=== PATIENT | female | born 1940 | race Caucasian/White ===

== ENCOUNTER 2016-09-10 15:45 | Outpatient (CLI) | payer MEDICARE | END 2016-09-10 15:46 | disposition home or self-care (01) | LOC: BURLAB 15:45 | PROVIDERS: ATTEND Family Medicine | DX: Z01.812 Encounter for preprocedural laboratory examination (principal) | CPT/HCPCS: 36415; 82565 ==

== ENCOUNTER 2016-09-11 09:05 | Outpatient (CLI) | payer MEDICARE ==
--- NOTE | 2016-09-11 15:49 | CT ---
CT ABDOMEN AND PELVIS WITH AND WITHOUT CONTRAST: DATE: 09/11/16. FINDINGS: Spiral CT of the abdomen and pelvis was performed for evaluation of left abdominal and pelvic pain. There is a prior history of left ovarian cancer. Comparison is made with the prior scan of 05/31/12 done at [facility]. Other than a small amount of dependent atelectasis, the lungs are clear. The liver, spleen, and mcclure creas were unremarkable on the noncontrast scan. On the postcontrast study, there was an equivocal hyperdensity in the dome of the right lobe of the liver that is not clearly visible on the prior falguni dy. I cannot tell if it is a small hypervascular lesion or merely some venous filling of pa portal branch. It measures 1.2 cm in size. There may be a similar area adjacent to it. Otherwise, the li cindy is unremarkable in appearance. The kidneys and other organs were unremarkable. There are no ad renal masses. The aorta shows no aneurysm. The bowel is nondistended. There is no mesenteric adenopathy or inflammatory change around bowel. Sigmoid diverticulosis is present, but there are no clear findings of diverticulitis. A small amoun t of streaking deep in the pelvis on the left side is probably related to scarring from her prior ov tasha surgery. It was present o the prior CT and has not changed. CT of the pelvis shows no pelvic masses, fluid collections, or other inflammatory changes. There ar e no findings suggestive of recurrent disease here. Degenerative changes are present in the spine. IMPRESSION: 1. Diverticulosis without findings of diverticulitis. 2. No changes to explain left lower quadrant or left-sided abdominal pain. 3. A 1.2 cm vague hypervascular area near the dome of the liver in the right lobe. Volume averagin g through a portal venous branch versus a small hypervascular lesion. If one wished, one could cons ider an MRI through the area to either rule in or rule out any pathology here. The findings is fair ly minimal, though I do not find a correlative finding on the 2012 scan. CODE T POS: HOME
== END 2016-09-11 09:06 | disposition home or self-care (01) ==
LOC: BURCT 09:05
PROVIDERS: ATTEND Family Medicine
DX: R10.32 Left lower quadrant pain (principal); K57.90 Diverticulosis of intestine, part unspecified, without perforation or abscess without bleeding
CPT/HCPCS: 74178

== ENCOUNTER 2017-01-31 11:23 | Emergency (ER) | payer MEDICARE ==
[2017-01-31 11:58] LABS: Eosinophils 2 % (0-10); Hemoglobin 15.9 g/dL (12.0-16.0); Lymphocytes 27 % (21-51); MDiff Complete? YES; Mean Corpuscular HGB CONC 32.6 g/dL (32.0-36.0); Mean Corpuscular Volume 91.8 fl (81.0-99.0); Mean Platelet Volume 7.8 fL (7.4-10.4); Monocytes 10 % (0-10); Neutrophil 61 % (42-75); Platelet Count 226 thou/uL (130-400); RBC Distribution Width 12.8 % (11.5-14.5); Red Blood Cell (RBC) Count 5.31 mill/uL (4.20-5.40); White Blood Cell (WBC) Count 8.2 thou/uL (4.8-10.8)
[2017-01-31 12:00] LABS: INR-International Normal Ratio 0.9; PTT 23.5 SEC (22.9-36.1); Prothrombin Time 12.2 SEC (12.0-14.7)
[2017-01-31 12:13] LABS: CKMB 1.3 ng/mL (0-6.6); Troponin I Less than 0.010 ng/mL (< 0.028)
--- NOTE | 2017-01-31 12:13 | CT ---
CT BRAIN: DATE: 01/31/17. PROVIDED CLINICAL HISTORY: Stroke alert, altered mental status, confusion and difficulty speaking. FINDINGS: Comparison is made with the study dated 07/09/15. The ventricular system appears normal in size and morphology. There is no evidence for intracranial hemorrhage or luís effect. Minimal microvascular ischemic change involving the left frontal white matter is redemonstrated, stable. The extracranial soft tissues and osseous structures demonstrate an unremarkable CT appearance. IMPRESSION: No evidence for intracranial hemorrhage or mass effect. Findings were communicated to Dr. Eid via telephone 11:41 a.m. 01/31/17. CODE CR POS: LYNDA
[2017-01-31 12:14] LABS: ALT (SGPT) 28 U/L (8-55); AST (SGOT) 25 U/L (5-34); Albumin 4.2 g/dL (3.4-4.8); Alkaline Phosphatase 35 U/L (40-150); Anion Gap 17 mmol/L (10-20); BUN (Urea Nitrogen) 18 mg/dL (9.8-20.1); Bilirubin, Total 0.7 mg/dL (0.2-1.2); Calc. Creatinine Clearance 0 mL/min (70-130); Calcium 9.5 mg/dL (7.8-10.44); Carbon Dioxide 25 mmol/L (23-31); Chloride 104 mmol/L (98-107); Estimated GFR-MDRD 50; Globulin 3.1 g/dL (2.4-3.5); Glucose 96 mg/dL (83-110); Protein, Total 7.3 g/dL (6.0-8.3); Sodium 142 mmol/L (136-145)
== END 2017-01-31 12:14 | disposition short-term general hospital (02) ==
LOC: BURERS 11:23
DX: R41.82 Altered mental status, unspecified (principal); I10 Essential (primary) hypertension
CPT/HCPCS: 36415; 70450; 80053; 82553; 84443; 84484; 85025; 85610; 85730; 93005; 94760

== ENCOUNTER 2018-03-13 10:12 | Emergency (ER) | payer MEDICARE ==
--- NOTE | 2018-03-13 11:06 | RAD ---
RIGHT SHOULDER 3 VIEWS: HISTORY: Trauma. Pain. COMPARISON: None. FINDINGS: There is evidence of previous rotator cuff repair. There is no fracture or dislocation. Visualized right ribs do not have any traumatic change. IMPRESSION: No fracture or dislocation. POS: LYNDA
== END 2018-03-13 11:09 | disposition home or self-care (01) ==
LOC: BURERS 10:12
DX: S40.011A Contusion of right shoulder, initial encounter (principal); I10 Essential (primary) hypertension; W01.0XXA Fall on same level from slipping, tripping and stumbling without subsequent striking against object, initial encounter

== ENCOUNTER → 2019-12-05 | Emergency (ER) | payer MEDICARE ==
[~2019-12-05] MED LIST: Acetaminophen 500 MG TAB ONE; Adacel (T-DAP) 0.5 ML SYRINGE ONE; Bacitracin 1 PK ONE; Lidocaine 1% w/Epinephrine 1:100K 30 ML VIAL ONE
--- NOTE | 2019-12-05 09:47 | CT ---
CT OF THE CERVICAL SPINE: DATE: 12/05/2019. FINDINGS: Spiral CT of the cervical spine was performed for evaluation after a fall. No fracture, dislocation, or acute bony change was seen. There is straightening of the cervical spin e which could be the patient's norm or due to spasm. The C1 to dens distance is normal and the soft tissues are normal in thickness. Findings by level follow: C1-C2: No acute findings. C2-C3: Mild to moderate left foraminal stenosis due to osteophytes. Prominent arthritic changes in the facets on the left. C3-C4: Severe bilateral facet arthritis, worst on the right. Severe right foraminal narrowing and m oderate left foraminal narrowing. A bony structure presumed to be osteophyte protrudes into the spin al canal from the left posterolateral margin and slightly indents the thecal sac. C4-C5: Severe facet arthritis especially on the right. Severe right foraminal stenosis and moderate to severe left foraminal stenosis. Mildly bulging disk-osteophyte complex with an AP diameter of th e canal at this level of about 8 mm. C5-C6: Severe facet arthritis, right greater than left. Severe right foraminal stenosis and moderat e left foraminal stenosis. Centrally bulging disk-osteophyte complex. At the C6 level, the maximal AP diameter of the canal is about 8 mm. C7-T1: Mild right foraminal narrowing. T1-T2: Mild left foraminal narrowing. T2-T3: No acute findings. IMPRESSION: Severe degenerative changes as noted, but no acute fracture was seen. Findings called to the ER at 0835 on 12/05/2019. CODE CR POS: HOME
--- NOTE | 2019-12-05 10:03 | CT ---
CT OF THE BRAIN WITHOUT CONTRAST: DATE: 12/05/2019. COMPARISON: Comparison is made with a 01/31/2017 study. FINDINGS: The ventricles are normal in size for age and atrophy. No intracranial bleeding or extraaxial hemato ma was seen. There is no sign of stroke, mass, or edema. The skull appears intact; however, there is a fracture at the base of the right nasal bone. There is slight septal deviation towards the right. The visible paranasal sinuses are clear, however. IMPRESSION: 1. No acute intracranial findings. 2. Fracture of the right nasal bone. Report called to ER at 0835 on 12/05/2019. CODE CR POS: HOME
== END ==
LOC: BURERS 07:52
DX: S01.81XA Laceration without foreign body of other part of head, initial encounter (principal); I10 Essential (primary) hypertension; Z79.899 Other long term (current) drug therapy
CPT/HCPCS: 12052; 70450; 72125; 90471; 90715; J2001

== ENCOUNTER 2019-12-09 07:55 | Emergency (ER) | payer MEDICARE | END 2019-12-09 08:20 | disposition home or self-care (01) | LOC: BURERS 07:55 | DX: S01.81XD Laceration without foreign body of other part of head, subsequent encounter (principal); I10 Essential (primary) hypertension; Z79.899 Other long term (current) drug therapy ==

== ENCOUNTER 2021-12-03 14:13 | Emergency (ER) | payer MEDICARE ==
[2021-12-03 14:58] LABS: Bilirubin Negative (Negative); Blood, Urine Negative (Negative); Glucose, Urine (Dipstick) Negative (Negative); Ketone, Urine Negative (Negative); Leukocyte Negative (Negative); Nitrite Negative (Negative); Protein, Urine (Dipstick) Negative (Neg-Trace)
[2021-12-03 14:59] LABS: Clarity Hazy (Clear)
[2021-12-03 15:48] LABS: #Basophils 0.2 thou/uL (0.0-0.2); #Eosinphils 0.2 thou/uL (0.0-0.7); #Monocytes 1.5 thou/uL (0.11-0.59); #Neutrophils 9.4 thou/uL (1.40-6.50); %Basophils 1.2 % (0.0-1.0); %Eosinophils 1.7 % (0.0-10.0); %Lymphocytes 14.9 % (21.0-51.0); %Monocytes 11.6 % (0.0-10.0); %Neutrophils 70.7 % (42.0-75.0); Hemoglobin 14.3 g/dL (12.0-16.0); Mean Corpuscular HGB CONC 33.8 g/dL (32.0-36.0); Mean Corpuscular Hemoglobin 30.7 pg (27.0-31.0); Mean Corpuscular Volume 90.9 fL (78.0-98.0); Mean Platelet Volume 7.7 fL (7.4-10.4); Platelet Count 209 thou/uL (130-400); Red Blood Cell (RBC) Count 4.65 mill/uL (4.20-5.40); White Blood Cell (WBC) Count 13.3 thou/uL (4.8-10.8)
[2021-12-03 16:06] LABS: ALT (SGPT) 23 U/L (8-55); AST (SGOT) 18 U/L (5-34); Albumin 3.9 g/dL (3.4-4.8); Alkaline Phosphatase 30 U/L (40-110); Anion Gap 16 mmol/L (10-20); BUN (Urea Nitrogen) 15 mg/dL (9.8-20.1); Bilirubin, Total 0.9 mg/dL (0.2-1.2); Calc. Creatinine Clearance 0 mL/min (70-130); Calcium 9.2 mg/dL (7.8-10.44); Carbon Dioxide 27 mmol/L (23-31); Chloride 101 mmol/L (98-107); Globulin 2.8 g/dL (2.4-3.5); Glucose 100 mg/dL (83-110); Lipase 10 U/L (8-78); Potassium 3.6 mmol/L (3.5-5.1); Protein, Total 6.7 g/dL (5.8-8.1); Sodium 140 mmol/L (136-145)
[2021-12-03] MEDS ORDERED: Amoxicillin/Potassium Clav 875 MG TAB ONE (17:22)
== END 2021-12-03 17:29 | disposition home or self-care (01) ==
LOC: BURERS 14:13
DX: K57.32 Diverticulitis of large intestine without perforation or abscess without bleeding (principal); I10 Essential (primary) hypertension; Z85.43 Personal history of malignant neoplasm of ovary
CPT/HCPCS: 36415; 74176; 80053; 81003; 83605; 83690; 85025; 87804; 93005

== ENCOUNTER 2023-01-08 10:15 | Inpatient (IN) | payer MEDICARE ==
[2023-01-08 19:55] VITALS: BMI 27.4
[2023-01-08] MEDS ORDERED: Ondansetron ODT 4 MG TAB PO PRN (21:19)
[2023-01-08] MEDS ORDERED: Polyethylene Glycol 3350 17 GM Packet PO PRN (21:19)
[2023-01-08] MEDS ORDERED: hydrALAZINE 25 MG TAB PO SCH (23:15)
[2023-01-08] MEDS ORDERED: Famotidine 20 MG TAB PO SCH (23:15)
[2023-01-08] MEDS ORDERED: levETIRAcetam 500 mg/5 ml Oral Solution PO SCH (23:15)
[2023-01-08] MEDS ORDERED: Atorvastatin Calcium 10 MG TAB PO SCH (23:15)
[2023-01-09] MEDS: levETIRAcetam 500 mg/5 ml Oral Solution PO SCH ×2 (10:01→22:20)
[2023-01-09] MEDS: Calcium Carbonate 600 MG + Vit D TAB PO SCH (10:05)
[2023-01-09] MEDS: hydrALAZINE 25 MG TAB PO SCH ×3 (10:06→22:20)
[2023-01-09] MEDS: Famotidine 20 MG TAB PO SCH ×2 (10:09→22:21)
[2023-01-09] MEDS: Lisinopril 20 MG TAB PO SCH (10:09)
[2023-01-09] MEDS: Magnesium Oxide 400 MG TAB PO SCH (10:09)
[2023-01-09] MEDS: Escitalopram Oxalate 10 mg Tablet PO SCH (10:09)
[2023-01-09] MEDS: Amlodipine 5 MG TAB PO SCH (10:10)
[2023-01-09] MEDS: Atorvastatin Calcium 10 MG TAB PO SCH (22:21)
[2023-01-10] MEDS: levETIRAcetam 500 mg/5 ml Oral Solution PO SCH ×2 (10:21→23:10)
[2023-01-10] MEDS: hydrALAZINE 25 MG TAB PO SCH ×3 (10:21→23:10)
[2023-01-10] MEDS: Famotidine 20 MG TAB PO SCH ×2 (10:23→23:11)
[2023-01-10] MEDS: Calcium Carbonate 600 MG + Vit D TAB PO SCH (10:23)
[2023-01-10] MEDS: Escitalopram Oxalate 10 mg Tablet PO SCH (10:24)
[2023-01-10] MEDS: Amlodipine 5 MG TAB PO SCH (10:24)
[2023-01-10] MEDS: Lisinopril 20 MG TAB PO SCH (10:24)
[2023-01-10] MEDS: Magnesium Oxide 400 MG TAB PO SCH (10:24)
[2023-01-10] MEDS: Atorvastatin Calcium 10 MG TAB PO SCH (23:11)
[2023-01-11] MEDS: levETIRAcetam 500 mg/5 ml Oral Solution PO SCH ×2 (09:11→22:34)
[2023-01-11] MEDS: Magnesium Oxide 400 MG TAB PO SCH (09:12)
[2023-01-11] MEDS: Escitalopram Oxalate 10 mg Tablet PO SCH (09:12)
[2023-01-11] MEDS: Lisinopril 20 MG TAB PO SCH (09:12)
[2023-01-11] MEDS: Famotidine 20 MG TAB PO SCH ×2 (09:12→22:35)
[2023-01-11] MEDS: Calcium Carbonate 600 MG + Vit D TAB PO SCH (09:12)
[2023-01-11] MEDS: Amlodipine 5 MG TAB PO SCH (09:13)
[2023-01-11] MEDS: hydrALAZINE 25 MG TAB PO SCH ×3 (09:16→22:35)
[2023-01-11] MEDS: Atorvastatin Calcium 10 MG TAB PO SCH (22:35)
[2023-01-12] MEDS: Lisinopril 20 MG TAB PO SCH (09:26)
[2023-01-12] MEDS: Amlodipine 5 MG TAB PO SCH (09:26)
[2023-01-12] MEDS: hydrALAZINE 25 MG TAB PO SCH ×3 (09:26→23:59)
[2023-01-12] MEDS: levETIRAcetam 500 mg/5 ml Oral Solution PO SCH ×2 (09:26→23:58)
[2023-01-12] MEDS: Escitalopram Oxalate 10 mg Tablet PO SCH (09:26)
[2023-01-12] MEDS: Calcium Carbonate 600 MG + Vit D TAB PO SCH (09:26)
[2023-01-12] MEDS: Famotidine 20 MG TAB PO SCH (09:27)
[2023-01-13] MEDS: Atorvastatin Calcium 10 MG TAB PO SCH ×2 (00:02→21:40)
[2023-01-13] MEDS: Famotidine 20 MG TAB PO SCH ×3 (00:03→21:40)
[2023-01-13] MEDS: Magnesium Oxide 400 MG TAB PO SCH ×2 (00:04→21:41)
[2023-01-13] MEDS: hydrALAZINE 25 MG TAB PO SCH ×3 (09:38→21:40)
[2023-01-13] MEDS: Calcium Carbonate 600 MG + Vit D TAB PO SCH (09:39)
[2023-01-13] MEDS: Escitalopram Oxalate 10 mg Tablet PO SCH (09:40)
[2023-01-13] MEDS: Amlodipine 5 MG TAB PO SCH (09:40)
[2023-01-13] MEDS: Lisinopril 20 MG TAB PO SCH (09:40)
[2023-01-13] MEDS: levETIRAcetam 500 mg/5 ml Oral Solution PO SCH ×2 (09:44→21:40)
[2023-01-13] MEDS ORDERED: Bisacodyl 10 MG SUPP PR PRN (17:27)
[2023-01-13] MEDS ORDERED: Bisacodyl 5 MG TAB PO PRN (17:27)
[2023-01-13] MEDS ORDERED: Acetaminophen 325 MG TAB PO PRN (17:30)
[2023-01-14] MEDS: levETIRAcetam 500 mg/5 ml Oral Solution PO SCH ×2 (09:43→22:34)
[2023-01-14] MEDS: hydrALAZINE 25 MG TAB PO SCH ×3 (09:56→22:36)
[2023-01-14] MEDS: Amlodipine 5 MG TAB PO SCH (09:57)
[2023-01-14] MEDS: Famotidine 20 MG TAB PO SCH ×2 (09:57→22:37)
[2023-01-14] MEDS: Lisinopril 20 MG TAB PO SCH (09:57)
[2023-01-14] MEDS: Calcium Carbonate 600 MG + Vit D TAB PO SCH (09:57)
[2023-01-14] MEDS: Escitalopram Oxalate 10 mg Tablet PO SCH (09:57)
[2023-01-14 12:44] LABS: #Basophils 0.3 thou/uL (0.0-0.2); #Eosinphils 0.2 thou/uL (0.0-0.7); #Lymphocytes 1.7 thou/uL (1.20-3.40); %Basophils 2.6 % (0.0-1.0); %Eosinophils 1.8 % (0.0-10.0); %Monocytes 9.1 % (0.0-10.0); %Neutrophils 71.6 % (42.0-75.0); Hemoglobin 11.8 g/dL (12.0-16.0); Mean Corpuscular HGB CONC 32.5 g/dL (32.0-36.0); Mean Corpuscular Hemoglobin 29.6 pg (27.0-31.0); Mean Corpuscular Volume 91.1 fl (78.0-98.0); Mean Platelet Volume 7.5 fL (7.4-10.4); Platelet Count 336 10x3/uL (130-400); RBC Distribution Width 13.2 % (11.5-14.5); White Blood Cell (WBC) Count 11.1 10x3/uL (4.8-10.8)
[2023-01-14 12:48] LABS: ALT (SGPT) 32 U/L (8-55); AST (SGOT) 21 U/L (5-34); Albumin 3.5 g/dL (3.4-4.8); Alkaline Phosphatase 34 U/L (40-110); Anion Gap 11 mmol/L (10-20); BUN (Urea Nitrogen) 19 mg/dL (9.8-20.1); Bilirubin, Total 0.6 mg/dL (0.2-1.2); Calc. Creatinine Clearance 61 mL/min (70-130); Calcium 9.7 mg/dL (7.8-10.44); Carbon Dioxide 26 mmol/L (23-31); Chloride 104 mmol/L (98-107); Estimated GFR 69; Globulin 2.9 g/dL (2.4-3.5); Glucose 113 mg/dL (83-110); Potassium 3.9 mmol/L (3.5-5.1); Protein, Total 6.4 g/dL (5.8-8.1); Sodium 137 mmol/L (136-145)
[2023-01-14 18:07] LABS: Bilirubin Negative (Negative); Blood, Urine Negative (Negative); Clarity Clear (Clear); Glucose, Urine (Dipstick) Negative (Negative); Ketone, Urine Negative (Negative); Leukocyte Trace (Negative); Nitrite Negative (Negative); Protein, Urine (Dipstick) Negative (Neg-Trace); Urobilinogen 0.2 mg/dL (Less than 2); pH, Urine 5.5 (5.0-9.0)
[2023-01-14 18:22] LABS: CAUTI Indications for Culture Alt mental st,lethar; WBC/HPF 0-3 HPF (0-3)
[2023-01-14 18:23] LABS: Bacteria/HPF 1+ HPF (None Seen)
[2023-01-14 18:24] LABS: RBC/HPF 0-3 HPF (0-3)
[2023-01-14 18:25] LABS: Urine Culture Reflex No No
[2023-01-14] MEDS: Magnesium Oxide 400 MG TAB PO SCH (22:37)
[2023-01-14] MEDS: Atorvastatin Calcium 10 MG TAB PO SCH (22:37)
[2023-01-15] MEDS: hydrALAZINE 25 MG TAB PO SCH ×2 (09:47→15:38)
[2023-01-15] MEDS: levETIRAcetam 500 mg/5 ml Oral Solution PO SCH (09:47)
[2023-01-15] MEDS: Lisinopril 20 MG TAB PO SCH (09:48)
[2023-01-15] MEDS: Amlodipine 5 MG TAB PO SCH (09:48)
[2023-01-15] MEDS: Famotidine 20 MG TAB PO SCH (09:48)
[2023-01-15] MEDS: Escitalopram Oxalate 10 mg Tablet PO SCH (09:48)
[2023-01-15 15:39] VITALS: BP 125/60
[2023-01-15 17:43] VITALS: TEMP 97.8
== END 2023-01-15 20:34 | disposition short-term general hospital (02) | DRG 84 ==
LOC: BURMED 16:45
PROVIDERS: ADMIT Family Medicine; ATTEND Family Medicine
DX: S06.5XAA Traumatic subdural hemorrhage with loss of consciousness status unknown, initial encounter (principal); R53.81 Other malaise; I10 Essential (primary) hypertension; E78.5 Hyperlipidemia, unspecified; F41.9 Anxiety disorder, unspecified; F32.A Depression, unspecified; Z90.710 Acquired absence of both cervix and uterus; Z90.49 Acquired absence of other specified parts of digestive tract; Z90.721 Acquired absence of ovaries, unilateral; Z88.0 Allergy status to penicillin; Z79.899 Other long term (current) drug therapy
CPT/HCPCS: 36415; 70450; 80053; 80177; 81001; 85025

== ENCOUNTER 2023-07-16 15:03 | Outpatient (CLI) | payer MEDICARE | END 2023-07-16 15:04 | disposition home or self-care (01) | LOC: BURCT 15:03 | PROVIDERS: ATTEND Neurological Surgery | DX: I62.00 Nontraumatic subdural hemorrhage, unspecified (principal); G93.89 Other specified disorders of brain; Z98.890 Other specified postprocedural states | CPT/HCPCS: 70450 ==

== ENCOUNTER 2023-10-04 11:30 | Emergency (ER) | payer MEDICARE | END 2023-10-04 12:58 | disposition home or self-care (01) | LOC: BURERS 11:30 | DX: S73.102A Unspecified sprain of left hip, initial encounter (principal); S70.02XA Contusion of left hip, initial encounter; I10 Essential (primary) hypertension; W10.8XXA Fall (on) (from) other stairs and steps, initial encounter ==